=== PATIENT | female | born 1940 | race African-American/Black ===

== ENCOUNTER 2017-07-08 20:08 | Inpatient (IN) ==
[2017-07-08] MEDS ORDERED: SODIUM CHLORIDE 0.9% 1,000 ML IV STA (21:52)
[2017-07-08 22:21] LABS: Basophils % 0.4 % (0.0-0.8); Eosinophils # 0.2 10*3/uL (0.0-0.87); Eosinophils % 3.1 % (0.00-10.9); Hematocrit 28.5 VOL% (35.7-47.0); Hemoglobin 9.2 GM/DL (12.0-16.0); Immature Granulocytes % 0.1 %; Immature Granulocytes Absolute 0.01 #; Lymphocytes # 1.9 10*3/uL (1.4-4.0); Lymphocytes % 27.7 % (21.3-54.2); Mean Corpuscular HGB Conc 32.3 GM/DL (32-36); Mean Corpuscular Hemoglobin 30 PG (27-34); Mean Corpuscular Volume 91.9 FL (87-102); Mean Platelet Volume 9.6 FL (9.6-12.0); Monocytes # 0.6 10*3/uL (0.11-0.8); Monocytes % 9.3 % (1.7-12.7); Neutrophils % 59.4 % (38.7-73.9); Platelet Count 210 T/CUMM (130-400); Red Cell Distribution Width 15.2 % (9.3-17.3); White Blood Count 6.7 T/CUMM (4-12)
[2017-07-08 23:01] LABS: Alanine Aminotransferase 27 U/L (13-56); Albumin 3.4 G/DL (3.4-5.0); Alkaline Phosphatase 61 U/L (45-117); Aspartate Amino Transferase 56 U/L (0-37); Bilirubin,Total < 0.39 MG/DL (0.2-1.0); Blood Urea Nitrogen 20 MG/DL (7-18); Calcium 8.4 MG/DL (8.5-10.1); Glucose 88 MG/DL (74-106); Osmolality,Calculated 282.3 MOS/KG (273-304); Potassium 3.7 MMOL/L (3.5-5.1); Sodium 141 MMOL/L (136-145); Total Protein 7.2 G/DL (6.4-8.3)
[2017-07-09] MEDS ORDERED: MORPHINE 2 MG/1 ML SYRINGE IV PRN (00:33)
[2017-07-09] MEDS ORDERED: ONDANSETRON 4 MG/2 ML VIAL IV PRN (00:33)
[2017-07-09] MEDS ORDERED: DEXTROSE 50% 25 GM/50 ML VIAL IV PRN (00:33)
[2017-07-09] MEDS ORDERED: GLUCAGON 1 MG VIAL IM PRN (00:33)
[2017-07-09] MEDS: SODIUM CHLORIDE 0.9% 1,000 ML IV SCH ×3 (01:06→20:38)
[2017-07-09 01:19] LABS: Magnesium 2.2 MG/DL (1.8-2.4)
[2017-07-09 01:22] LABS: Troponin I Only 0.058 NG/ML (0.00-0.045)
[2017-07-09 05:39] LABS: Troponin I Only 0.055 NG/ML (0.00-0.045)
[2017-07-09] MEDS ORDERED: hydroCHLOROthiazide 12.5 MG CAPSULE PO SCH (09:00)
[2017-07-09] MEDS ORDERED: FUROSEMIDE 20 MG TABLET PO SCH (09:00)
[2017-07-09] MEDS ORDERED: POTASSIUM CHLORIDE 10 MEQ TABLET PO SCH (09:00)
[2017-07-09] MEDS: amLODIPine 5 MG TABLET PO SCH (09:49)
[2017-07-09] MEDS: CILOSTAZOL 100 MG TABLET PO SCH ×2 (09:49→20:40)
[2017-07-09] MEDS: FLUoxetine 20 MG CAPSULE PO SCH (09:50)
[2017-07-09] MEDS: PANTOPRAZOLE 40 MG TABLET PO SCH (09:50)
[2017-07-09] MEDS: buPROPion SR 150 MG TABLET PO SCH ×2 (09:50→20:40)
[2017-07-09] MEDS: GABAPENTIN 600 MG TABLET PO SCH ×3 (09:50→20:40)
[2017-07-09] MEDS: ENOXAPARIN 40 MG/0.4 ML SYRINGE SUBCUT SCH (09:50)
[2017-07-09] MEDS: DOCUSATE SODIUM 100 MG CAPSULE PO SCH ×2 (09:50→20:43)
[2017-07-09] MEDS: METOCLOPRAMIDE 10 MG TABLET PO SCH (20:40)
[2017-07-09] MEDS: DONEPEZIL 10 MG TABLET PO SCH (20:41)
[2017-07-09] MEDS: PRAVASTATIN 40 MG TABLET PO SCH (20:41)
[2017-07-10] MEDS: SODIUM CHLORIDE 0.9% 1,000 ML IV SCH ×2 (06:33→17:07)
[2017-07-10 07:07] LABS: Blood Urea Nitrogen 18 MG/DL (7-18); Calcium 7.9 MG/DL (8.5-10.1); Glucose 79 MG/DL (74-106); Potassium 3.8 MMOL/L (3.5-5.1); Sodium 143 MMOL/L (136-145)
[2017-07-10] MEDS: FLUoxetine 20 MG CAPSULE PO SCH (09:09)
[2017-07-10] MEDS: DOCUSATE SODIUM 100 MG CAPSULE PO SCH ×2 (09:10→21:17)
[2017-07-10] MEDS: buPROPion SR 150 MG TABLET PO SCH ×2 (09:10→21:00)
[2017-07-10] MEDS: PANTOPRAZOLE 40 MG TABLET PO SCH (09:10)
[2017-07-10] MEDS: GABAPENTIN 600 MG TABLET PO SCH ×3 (09:10→21:00)
[2017-07-10] MEDS: ENOXAPARIN 40 MG/0.4 ML SYRINGE SUBCUT SCH (09:10)
[2017-07-10] MEDS: amLODIPine 5 MG TABLET PO SCH (09:10)
[2017-07-10] MEDS: CILOSTAZOL 100 MG TABLET PO SCH (09:15)
[2017-07-10] MEDS: PRAVASTATIN 40 MG TABLET PO SCH (20:59)
[2017-07-10] MEDS: METOCLOPRAMIDE 10 MG TABLET PO SCH (20:59)
[2017-07-10] MEDS: DONEPEZIL 10 MG TABLET PO SCH (21:01)
[2017-07-10] MEDS: ZALEPLON 5 MG CAPSULE PO PRN (23:38)
[2017-07-11] MEDS: SODIUM CHLORIDE 0.9% 1,000 ML IV SCH ×2 (01:33→13:40)
[2017-07-11 05:45] LABS: Calcium 8.2 MG/DL (8.5-10.1); Potassium 3.8 MMOL/L (3.5-5.1)
[2017-07-11] MEDS: ENOXAPARIN 40 MG/0.4 ML SYRINGE SUBCUT SCH (09:10)
[2017-07-11] MEDS: buPROPion SR 150 MG TABLET PO SCH ×2 (09:11→20:42)
[2017-07-11] MEDS: GABAPENTIN 600 MG TABLET PO SCH (09:11)
[2017-07-11] MEDS: FLUoxetine 20 MG CAPSULE PO SCH (09:11)
[2017-07-11] MEDS: DOCUSATE SODIUM 100 MG CAPSULE PO SCH ×2 (09:15→20:41)
[2017-07-11] MEDS: PANTOPRAZOLE 40 MG TABLET PO SCH (09:15)
[2017-07-11] MEDS: amLODIPine 5 MG TABLET PO SCH (09:16)
[2017-07-11] MEDS: GABAPENTIN 300 MG CAPSULE PO SCH ×2 (14:59→20:41)
[2017-07-11 16:06] LABS: ABG Oxygen Saturation 95.6 % (95-100); ABG PCO2 44.2 MM HG (35-48); ABG PH 7.409 (7.35-7.45); ABG PO2 74.4 MM HG (80-95)
[2017-07-11] MEDS ORDERED: amLODIPine 5 MG TABLET PO SCH (17:46)
[2017-07-11] MEDS: ZALEPLON 5 MG CAPSULE PO PRN (20:41)
[2017-07-11] MEDS: METOCLOPRAMIDE 10 MG TABLET PO SCH (20:41)
[2017-07-11] MEDS: DONEPEZIL 10 MG TABLET PO SCH (20:42)
[2017-07-11] MEDS: PRAVASTATIN 40 MG TABLET PO SCH (20:42)
[2017-07-12 03:49] LABS: Basophils % 0.5 % (0.0-0.8); Eosinophils # 0.2 10*3/uL (0.0-0.87); Eosinophils % 3.3 % (0.00-10.9); Hematocrit 27.5 VOL% (35.7-47.0); Immature Granulocytes % 0.2 %; Immature Granulocytes Absolute 0.01 #; Lymphocytes # 2.1 10*3/uL (1.4-4.0); Lymphocytes % 33.9 % (21.3-54.2); Mean Corpuscular HGB Conc 32.7 GM/DL (32-36); Mean Corpuscular Hemoglobin 30 PG (27-34); Mean Corpuscular Volume 90.5 FL (87-102); Mean Platelet Volume 9.5 FL (9.6-12.0); Monocytes # 0.7 10*3/uL (0.11-0.8); Monocytes % 11.3 % (1.7-12.7); Neutrophils # 3.1 10*3/uL (1.4-7.4); Neutrophils % 50.8 % (38.7-73.9); Platelet Count 208 T/CUMM (130-400); Red Blood Count 3.04 MC/CUMM (3.8-5.5); Red Cell Distribution Width 14.6 % (9.3-17.3); White Blood Count 6.1 T/CUMM (4-12)
[2017-07-12 04:04] LABS: Calcium 8.6 MG/DL (8.5-10.1); Magnesium 1.9 MG/DL (1.8-2.4); Osmolality,Calculated 282.1 MOS/KG (273-304); Potassium 3.8 MMOL/L (3.5-5.1)
[2017-07-12 04:12] LABS: Free T4 (Free Thyroxine) 1.08 NG/DL (0.76-1.46); Thyroid Stimulating Hormone 2.42 uIU/ml (0.358-3.74)
[2017-07-12 04:39] LABS: Risk Ratio 2.04; VLDL CHOLESTEROL 11.6 MG/DL
[2017-07-12] MEDS: GABAPENTIN 300 MG CAPSULE PO SCH (08:42)
[2017-07-12] MEDS: DOCUSATE SODIUM 100 MG CAPSULE PO SCH (08:42)
[2017-07-12] MEDS: FLUoxetine 20 MG CAPSULE PO SCH (08:43)
[2017-07-12] MEDS: PANTOPRAZOLE 40 MG TABLET PO SCH (08:43)
[2017-07-12] MEDS: buPROPion SR 150 MG TABLET PO SCH (08:43)
[2017-07-12] MEDS: ENOXAPARIN 40 MG/0.4 ML SYRINGE SUBCUT SCH (08:46)
[2017-07-12 12:06] VITALS: BP 148/92
[2017-07-12] MEDS ORDERED: LISINOPRIL 5 MG TABLET PO SCH (12:30)
[2017-07-12] MEDS ORDERED: hydrALAZINE 25 MG TABLET PO SCH (15:00)
== END 2017-07-12 15:20 | disposition swing bed (61) | DRG 641 ==
LOC: EDUNIT# → N.ED 20:08 → N.EDINP 22:12 → SUATTDRO 22:12 → N.TELEN 22:50
PROVIDERS: ADMIT Internal Medicine Cardiovascular Disease; ATTEND Internal Medicine

== ENCOUNTER 2017-08-20 16:25 | Observation (INO) ==
[2017-08-20 17:30] LABS: Basophils % 0.5 % (0.0-0.8); Eosinophils # 0.1 10*3/uL (0.0-0.87); Hematocrit 32.2 VOL% (35.7-47.0); Hemoglobin 10.7 GM/DL (12.0-16.0); Immature Granulocytes % 0.3 %; Immature Granulocytes Absolute 0.02 #; Lymphocytes # 1.5 10*3/uL (1.4-4.0); Lymphocytes % 23.1 % (21.3-54.2); Mean Corpuscular HGB Conc 33.2 GM/DL (32-36); Mean Corpuscular Hemoglobin 30 PG (27-34); Mean Corpuscular Volume 90.2 FL (87-102); Mean Platelet Volume 8.6 FL (9.6-12.0); Monocytes # 0.6 10*3/uL (0.11-0.8); Monocytes % 8.9 % (1.7-12.7); Neutrophils # 4.2 10*3/uL (1.4-7.4); Neutrophils % 66.2 % (38.7-73.9); Platelet Count 264 T/CUMM (130-400); Red Blood Count 3.57 MC/CUMM (3.8-5.5); Red Cell Distribution Width 14.2 % (9.3-17.3); White Blood Count 6.3 T/CUMM (4-12)
[2017-08-20 17:55] LABS: Albumin 3.8 G/DL (3.4-5.0); Bilirubin,Total 0.4 MG/DL (0.2-1.0); Calcium 8.8 MG/DL (8.5-10.1); Osmolality,Calculated 279.5 MOS/KG (273-304); Total Protein 7.7 G/DL (6.4-8.3)
[2017-08-20 18:14] LABS: Apearance,Urine CLEAR (Clear); Bilirubin,Urine Negative (Negative); Blood, Urine Negative (Negative); Glucose,Urine (UA) Negative (Negative); Ketones,Urine Negative (Negative); Mucus,Urine Occasional /LPF (Occasional); Nitrite,Urine Negative (Negative); Protein,Urine 30 MG/DL; Squamous Epithelial Cell,Urine Occasional /HPF (0-10); Urine Color Yellow (Yellow); Urine Specific Gravity 1.019 (1.001-1.035); Urine Urobilinogen < 2.0 EU/DL (0.2-1.0); WBC,Urine <1 /HPF (0-6)
[2017-08-20] MEDS ORDERED: NIFEdipine 10 MG CAPSULE PO PRN (19:44)
[2017-08-20] MEDS ORDERED: DEXTROSE 50% 25 GM/50 ML VIAL IV PRN (21:04)
[2017-08-20] MEDS ORDERED: GLUCAGON 1 MG VIAL IM PRN (21:04)
[2017-08-20] MEDS ORDERED: ONDANSETRON 4 MG/2 ML VIAL IV PRN (21:04)
[2017-08-20] MEDS: ENOXAPARIN 40 MG/0.4 ML SYRINGE SUBCUT SCH (22:23)
[2017-08-20] MEDS: DONEPEZIL 10 MG TABLET PO SCH (22:23)
[2017-08-20] MEDS: PRAVASTATIN 40 MG TABLET PO SCH (22:24)
[2017-08-20] MEDS: GABAPENTIN 600 MG TABLET PO SCH (22:24)
[2017-08-20] MEDS: METOCLOPRAMIDE 10 MG TABLET PO SCH (22:25)
[2017-08-20] MEDS: buPROPion SR 150 MG TABLET PO SCH (22:25)
[2017-08-21 07:09] LABS: Basophils % 0.6 % (0.0-0.8); Eosinophils # 0.1 10*3/uL (0.0-0.87); Eosinophils % 1.4 % (0.00-10.9); Hematocrit 31.3 VOL% (35.7-47.0); Immature Granulocytes % 0.2 %; Immature Granulocytes Absolute 0.01 #; Lymphocytes % 32.5 % (21.3-54.2); Mean Corpuscular HGB Conc 31.9 GM/DL (32-36); Mean Corpuscular Hemoglobin 29 PG (27-34); Mean Corpuscular Volume 91.3 FL (87-102); Mean Platelet Volume 9.2 FL (9.6-12.0); Monocytes # 0.7 10*3/uL (0.11-0.8); Monocytes % 11.8 % (1.7-12.7); Neutrophils # 3.3 10*3/uL (1.4-7.4); Neutrophils % 53.5 % (38.7-73.9); Platelet Count 276 T/CUMM (130-400); Red Blood Count 3.43 MC/CUMM (3.8-5.5); Red Cell Distribution Width 14.6 % (9.3-17.3); White Blood Count 6.2 T/CUMM (4-12)
[2017-08-21 07:23] LABS: Calcium 8.7 MG/DL (8.5-10.1); Magnesium 2.3 MG/DL (1.8-2.4); Osmolality,Calculated 277.5 MOS/KG (273-304)
[2017-08-21] MEDS: amLODIPine 10 MG TABLET PO SCH (09:00)
[2017-08-21] MEDS: PANTOPRAZOLE 40 MG TABLET PO SCH (09:00)
[2017-08-21] MEDS: buPROPion SR 150 MG TABLET PO SCH ×2 (09:00→20:54)
[2017-08-21] MEDS: CILOSTAZOL 100 MG TABLET PO SCH ×2 (09:00→17:47)
[2017-08-21] MEDS: GABAPENTIN 600 MG TABLET PO SCH ×3 (09:00→20:54)
[2017-08-21] MEDS: FLUoxetine 20 MG CAPSULE PO SCH (09:00)
[2017-08-21] MEDS ORDERED: TUBERCULIN SKIN TEST 0.1 ML SYRINGE INTRADERM ONE (15:03)
[2017-08-21] MEDS: METOCLOPRAMIDE 10 MG TABLET PO SCH (20:53)
[2017-08-21] MEDS: ENOXAPARIN 40 MG/0.4 ML SYRINGE SUBCUT SCH (20:53)
[2017-08-21] MEDS: PRAVASTATIN 40 MG TABLET PO SCH (20:53)
[2017-08-21] MEDS: DONEPEZIL 10 MG TABLET PO SCH (20:54)
[2017-08-22] MEDS: amLODIPine 10 MG TABLET PO SCH (09:10)
[2017-08-22] MEDS: CILOSTAZOL 100 MG TABLET PO SCH ×2 (09:10→16:25)
[2017-08-22] MEDS: PANTOPRAZOLE 40 MG TABLET PO SCH (09:11)
[2017-08-22] MEDS: GABAPENTIN 600 MG TABLET PO SCH ×3 (09:11→21:17)
[2017-08-22] MEDS: buPROPion SR 150 MG TABLET PO SCH ×2 (09:11→21:17)
[2017-08-22] MEDS: FLUoxetine 20 MG CAPSULE PO SCH (09:11)
[2017-08-22] MEDS: DONEPEZIL 10 MG TABLET PO SCH (21:17)
[2017-08-22] MEDS: PRAVASTATIN 40 MG TABLET PO SCH (21:18)
[2017-08-22] MEDS: METOCLOPRAMIDE 10 MG TABLET PO SCH (21:18)
[2017-08-22] MEDS: ENOXAPARIN 40 MG/0.4 ML SYRINGE SUBCUT SCH (21:18)
[2017-08-23] MEDS: PANTOPRAZOLE 40 MG TABLET PO SCH (08:47)
[2017-08-23] MEDS: CILOSTAZOL 100 MG TABLET PO SCH (08:47)
[2017-08-23] MEDS: GABAPENTIN 600 MG TABLET PO SCH (08:47)
[2017-08-23] MEDS: amLODIPine 10 MG TABLET PO SCH (08:47)
[2017-08-23] MEDS: buPROPion SR 150 MG TABLET PO SCH (08:47)
[2017-08-23] MEDS: FLUoxetine 20 MG CAPSULE PO SCH (08:48)
[2017-08-23 12:01] VITALS: BP 129/72
== END 2017-08-23 13:51 ==
LOC: N.ED 16:25 → EDBD 16:25 → EDUNIT# 16:25 → N.EDINP 18:18 → INTOOBSV 18:18 → SUATTDRO 18:18 → N.5E 19:43
PROVIDERS: ADMIT Internal Medicine; ATTEND Internal Medicine